=== PATIENT | female | born 1970 | race Caucasian/White ===

== ENCOUNTER 2016-07-17 15:46 | Emergency (ER) | payer OTHER ==
[~2016-07-17] VITALS: Ht 157.5 cm; Wt 90.9 kg
[~2016-07-17 15:46] MED LIST: ALBU6.7H INH; CHOL500014 PO; FEXO-46 PO; INSU100V7 SUBQ; METF500T4 PO; MONT10TA23 PO; NIAC500T8 PO; THYR15TA PO
[2016-07-17 15:57] VITALS: BP 145/99; PULSE 108; RESP 16; O2SAT 98
[2016-07-17 16:40] LABS: BASOPHILS % (AUTO) 0.7 % (0-3); EOSINOPHILS % (AUTO) 3.8 % (0-5); Mean Corpuscular Volume 88.9 fL (81-100); NEUTROPHILS % (AUTO) 73.5 % (40-74); Platelet Count 199 bil/L (150-400)
[2016-07-17 17:01] LABS: Magnesium 1.9 mg/dL (1.6-2.6)
--- NOTE | 2016-07-17 17:33 | ED.REPORT ---
HPI-Abd Pain F 40 and Over Date of Service Jul 17, 2016 ED Provider: Mario Meek MD This is a 46 year old female with a history of DM and HTN presenting to the emergency department complaining of RUQ abdominal pain that began 3 days ago. Abdominal pain is worse after eating. Associated symptoms include melena that began yesterday. Also reports decreased PO intake, increased thirst, frequent urination. Blood sugars have been measured in the 190s recently. PCP Dr[address] Nix. Denies fever, chills, nausea, vomiting, constipation. Nursing Notes Stated Complaint: STOMACH PAIN,BLACK STOOL Chief Complaint: Female Abdominal Pain Nursing Notes Reviewed: Yes Allergies: Coded Allergies: Penicillins (Verified Allergy, Unknown, 07/17/16) Sulfa (Sulfonamide Antibiotics) (Verified Allergy, Unknown, 07/17/16) Scheduled Insulin Glargine (Lantus U100 Insulin Vial) 100 Unit/Ml Vial 15 UNIT SUBQ QPM- INSULIN Metformin (Metformin) 500 Mg Tablet 500 MG PO TIDWM Montelukast (Montelukast) 10 Mg Tablet 10 MG PO HS Niacin (Niacin) 500 Mg Tablet.er 500 MG PO DAILY Omeprazole (Omeprazole) 20 Mg Tablet.dr 20 MG PO BID Thyroid,Pork ([place] Thyroid) 15 Mg Tablet 10 MG PO BID Scheduled PRN Albuterol Sulfate (Proventil HFA Inhaler) 6.7 Gm Hfa.aer.ad 1 PUFF INH Q4 PRN PRN For Shortness of Breath Miscellaneous Medications Cholecalciferol (Vitamin D3) (Vitamin D) 5,000 Unit Tablet 5,000 UNIT PO Fexofenadine (Fexofenadine) 60 Mg Tablet Unknown Dose PO General Time Seen by MD: 17:31 Chief Complaint Abdominal pain Hx Obtained From: Patient Arrived By: Walk-in Sudden in Onset?: Yes Onset Occurred: 3 days ago Symptom Duration: Since onset Severity: Current: Mild Pertinent Negative: Pt denies other symptoms Recent Healthcare: No recent doctor visit, No recent hospitalization Similar Sx Previous: No Past Medical History Past Medical History Reports: Asthma, Diabetes mellitus, Hypertension Past Surgical History Reports: Carpal tunnel Smoking History Never Smoker Social History Alcohol Use: 1-3 per day Drug Use: THC Ambulatory Status Independent Review of Systems Constitutional: Denies: Chills, Fever Respiratory: Denies: Non-productive cough, Shortness of breath Cardiovascular: Denies: Chest pain GI: Reports: Abdominal pain, Melena, Denies: Constipation, Diarrhea, Hematemesis, Nausea, Vomiting Female: Reports: Urinary frequency, Denies: Dysuria Complete sys rev & neg: except as marked. Physical Exam Vital Signs Vital Signs (First) Date Time Temp Pulse Resp B/P Pulse Ox O2 Delivery O2 Flow Rate FiO2 07/17/16 15:57 36.3 108 16 145/99 98 Room Air Initial VS: Reviewed Head / Eyes: Atraumatic, Normocephalic, PERRL ENT: Mucous membranes moist, Conjunctiva normal, No scleral icterus Neck: Supple, Non-tender, Full range of motion Extremities: Vascular intact, Neuro intact, No swelling, No tenderness Skin: Warm, Dry, No cyanosis Neurologic: Alert, Oriented, Nonfocal Psychiatric: Mood/affect normal, Behavior normal, Normal thought content General/Constitutional: Awake, Alert Respiratory / Chest: Breath sounds NL, Breath sounds = bilat, No respiratory distress, No rales, No rhonchi, No wheezing, No stridor Cardiovascular: Heart rate NL, Regular rhythm, Heart sounds NL, Peripheral circulation NL Tenderness/Guarding/Rebound: Positive: Tender RUQ... (Mild, with deep inspiration ) Back: Inspection NL, Non-tender, No CVA tenderness Interpretation & Diagnostics Interpretation & Diagnostics: US remarkable, except for fatty liver. No evidence of cholelithiasis or cholecystitis. Lab Results Interpretation Result Diagram: 07/17/16 1623 07/17/16 1623 Test 07/17/16 16:23 07/17/16 17:41 White Blood Count 7.7th/mm3 (3.8-10.1) Red Blood Count 5.48mil/mm3 (3.90-5.20) Hemoglobin 17.0g/dL (12.0-15.6) Hematocrit 48.7% (35.0-46.0) Mean Corpuscular Volume 88.9fL (81-100) Mean Corpuscular Hemoglobin 31.0pg (27.0-35.0) Mean Corpuscular Hemoglobin Concent 34.9% (32.0-37.0) Red Cell Distribution Width 12.1% (12.3-15.4) Platelet Count 199bil/L (150-400) Neutrophils (%) (Auto) 73.5% (40-74) Lymphocytes (%) (Auto) 12.9% (14-46) Monocytes (%) (Auto) 9.0% (4-12) Eosinophils (%) (Auto) 3.8% (0-5) Basophils (%) (Auto) 0.7% (0-3) Sodium Level 132mEq/L (134-144) Potassium Level 4.1mEq/L (3.5-5.2) Chloride Level 92mEq/L (97-108) Carbon Dioxide Level 15mmol/L (18-29) Blood Urea Nitrogen 11mg/dL (6-24) Creatinine 1.01mg/dL (0.57-1.00) Estimat Glomerular Filtration Rate 85mL/min (>59) Glucose Level 142mg/dL (60-99) Calcium Level 9.8mg/dL (8.5-10.1) Magnesium Level 1.9mg/dL (1.6-2.6) Total Bilirubin 0.7mg/dL (0.0-1.2) Aspartate Amino Transf (AST/SGOT) 57U/L (0-50) Alanine Aminotransferase (ALT/SGPT) 51U/L (0-32) Alkaline Phosphatase 108U/L (25-150) Total Protein 8.5g/dL (6.4-8.4) Albumin 4.9g/dL (3.4-5.0) Lipase 33U/L (13-60) Hold Lujan Top Tube Received (Received) Urine Color Yellow (YELLOW) Urine Appearance Hazy (CLEAR,HAZY) Urine pH 6.0 (5.0-8.0) Urine Specific Zeigler 1.020 (1.003-1.035) Urine Protein 100mg/dL (NEG,TRACE) Urine Glucose (UA) Negativemg/dL (NEGATIVE) Urine Ketones 40mg/dL (NEGATIVE) Urine Occult Blood Large (NEGATIVE) Urine Nitrite Negative (NEGATIVE) Urine Bilirubin Negative (NEGATIVE) Urine Urobilinogen Normalmg/dL (NORMAL) Urine Leukocyte Esterase Trace (NEGATIVE) Urine RBC 3-10/hpf (0-2) Urine WBC 6-10/hpf (0-5) Urine Epithelial Cells Many/hpf (NONE-MOD) Urine Crystals Amorphous urates (NONE Urine Bacteria Few/hpf (NONE-FEW) Urine Hyaline Casts None/lpf (NONE) Urine Granular Casts None seen (NONE SEEN) Urine Waxy Casts None seen (NONE SEEN) Urine Red Blood Cell Casts None seen (NONE SEEN) Urine White Blood Cell Casts None seen (NONE SEEN) Urine Mucus None seen (None Seen) Urine Trichomonas None seen (NONE SEEN) Urine Yeast None (NONE SEEN) Urinalysis Comment None Urine Culture Reflexed Indicated Re-Eval/Medical Decision Med Decision/Clinical Course This is a 46 year old female with a history of excessive alcohol use consuming at least 3 alcohol beverages nightly, DM and HTN presenting to the emergency department complaining of RUQ abdominal pain that began 3 days ago. Abdominal pain is worse after eating. Associated symptoms include melena that began yesterday. Upon examination the patient has mild tenderness about the right upper quadrant and epigastrium. She is afebrile stable vital signs are normal. Distress. Urine negative UA: large blood in s/o menstrual period trace leuk esterase many epithelial cells with few bacteria unconvincing for infection, sent for culture Left wrist that is notable as below: No leucocytosis Hct 48.7 Mild hyponatremia Good kidney function No electrolyte abnormalities Mildly elevated transaminases Lipase within normal limits Right upper quadrant ultrasound was obtained and demonstrated fatty infiltration of the liver without any evidence of acute cholecystitis or gallstones. Serial abdominal examinations remained benign. At this time, I see no evidence of acute biliary disease. Overall presentation was consistent with gastritis versus peptic ulcer disease. This is likely in the setting of the patient's excessive alcohol use. Patient advised to reduce alcohol use and avoid nonsteroidal anti-inflammatory drugs. Patient will start omeprazole and follow up with gastroenterology for further workup. No evidence of significant blood loss at this time. The patient does report melena hematocrit is not lowered. The patient will likely require upper endoscopy though I do not feel that this needs to be done on an emergent basis. Follow-up and return precautions were reviewed in detail and the patient was discharged in stable condition. Re-Evaluation/Progress : Time of Eval: 19:19 Re-Evaluation/Progress Note: Discussed lab results and plan for discharge, all questions addressed. Counseled Regarding: Diagnosis, Lab results, Need for follow-up, When/why to return to ED Discharge & Departure Primary Impression: Gastritis Additional Impressions: Epigastric pain Right upper quadrant pain Alcohol abuse Transaminitis Fatty liver Disposition: Home Discharge Condition All VS Reviewed: Yes Condition: Stable Patient Instructions: Gastritis (ED) Additional Instructions: Thank you for seeking care at emergency room. It is difficult for us to make definitive diagnoses in the ED but we believe that you are experiencing gastritis. Our primary goal today in the ED was to evaluate you for any life-threatening conditions. Your evaluation was reassuring. You will be discharged with a prescription for omeprazole, take as prescribed. Avoid NSAIDS such as ibuprofen and reduce your alcohol consumption. You should follow-up with the take up operator. You should return to the ED immediately if you develop fevers, vomiting, cough, shortness of breath, chest pain, lightheadedness, weakness or any other concerning signs or symptoms. Referrals: Ethel Nix MD (PCP) Fahad Arteaga MD Attestation Portions of this note were transcribed by Magan Robertson. I, Dr. Meek personally performed the history, physical exam and medical decision-making; I reviewed and confirmed the accuracy of the information in the transcribed note. Signed by: alisia Rogers. 07/17/2016, 23:30. copies to: Ethel Nix MD, Beck O MD Jul 17, 2016 17:33 MAGAN ROBERTSON Jul 17, 2016 17:34
[2016-07-17 18:12] LABS: APPEARANCE,URINE HAZY (CLEAR,HAZY); COLOR,URINE YELLOW (YELLOW); OCCULT BLOOD,URINE LARGE (NEGATIVE); UROBILINOGEN,URINE NORMAL (NORMAL)
[2016-07-17] MEDS ORDERED: OMEP20TA86 PO (19:21)
--- NOTE | 2016-07-17 19:22 | DRSVH ---
PROCEDURE: US ABDOMEN ([id number]) INDICATIONS: ruq pain, assess gb TECHNIQUE: Real-time scanning was performed of the abdominal and retroperitoneal organs, with image documentatio n. COMPARISON: None. FINDINGS: Liver: The liver is enlarged with steatosis. Gallbladder: Gallbladder demonstrates no stones or wall thickening. No pericholecystic fluid. Biliary ducts: Intrahepatic bile ducts are non-dilated. Extrahepatic bile duct caliber measures 5.1 mm. Normal is 6-7 mm or less in diameter, or 10 mm or less post-cholecystectomy. Pancreas: Visualized portions of the pancreas are sonographically normal. Spleen: Spleen is normal in size and homogeneous in echotexture. Kidneys: Kidneys are normal in size and echotexture. Right kidney measures 10.3 cm long; left kidne y measures 11.6 cm long. No hydronephrosis or nephrolithiasis. No solid masses. Right renal cyst i s present measuring 20 x 19 x 24 mm, slightly decreased compared to prior exam. Aorta: Visualized aorta is normal in caliber at less than 3 cm. Iliacs: Proximal common iliac arteries are normal in caliber at less than 2.5 cm. IVC: Intrahepatic inferior vena cava is patent. Miscellaneous: No free abdominal fluid. IMPRESSION: 1. Gallbladder is unremarkable. 2. Hepatomegaly with steatosis. Dictated by: Amarilis Harrison M.D. on 07/17/2016 at 19:19 Approved by: Amarilis Harrison M.D. on 07/17/2016 at 19:21
[2016-07-17 19:25] VITALS: BP 154/97; PULSE 97; RESP 18; O2SAT 97
== END 2016-07-17 19:26 | disposition home or self-care (01) ==
LOC: SED 15:46
DX: K29.70 Gastritis, unspecified, without bleeding (principal); R10.13 Epigastric pain; R10.11 Right upper quadrant pain; F10.10 Alcohol abuse, uncomplicated; R74.0 Nonspecific elevation of levels of transaminase and lactic acid dehydrogenase [LDH]; K76.0 Fatty (change of) liver, not elsewhere classified; E11.9 Type 2 diabetes mellitus without complications; I10 Essential (primary) hypertension; J45.909 Unspecified asthma, uncomplicated; Z88.0 Allergy status to penicillin; Z88.2 Allergy status to sulfonamides; Z79.4 Long term (current) use of insulin; Z79.84 Long term (current) use of oral hypoglycemic drugs